=== PATIENT | female | born 1990 | race Caucasian/White ===

== ENCOUNTER 2019-02-24 12:16 | Emergency (ER) | payer SELFPAY ==
--- NOTE | 2019-02-24 12:53 | RAD ---
RIGHT ANKLE THREE VIEWS: HISTORY: Injury. FINDINGS: Mild soft tissue swelling laterally. Mild spurring from the medial malleolus. No fracture. No acute o sseous abnormality. IMPRESSION: No acute fracture. POS: NAHOMY
[2019-02-24] MEDS ORDERED: Ketorolac Tromethamine 60 MG/2 ML VIAL ONE (13:14)
== END 2019-02-24 13:36 | disposition home or self-care (01) ==
LOC: NAV ERS 12:16
DX: S93.401A Sprain of unspecified ligament of right ankle, initial encounter (principal); F41.9 Anxiety disorder, unspecified; F31.9 Bipolar disorder, unspecified; Z79.899 Other long term (current) drug therapy; X50.9XXA Other and unspecified overexertion or strenuous movements or postures, initial encounter
CPT/HCPCS: 96372; J1885